=== PATIENT | female | born 1990 | race Caucasian/White ===

== ENCOUNTER → 2018-10-03 10:52 | Outpatient (CLI) | payer OTHER, SELFPAY ==
[2018-10-03 12:05] LABS: Add Manual Diff / Slide Review NO; Basophils Percent Auto 1.4 % (0-2); Eosinophils Percent Auto 1.8 % (2-4); Hematocrit 35.6 % (36-46); Hemoglobin 11.1 g/dL (12.0-16.0); Lymphocytes Percent Auto 26.7 % (25-40); Mean Corpuscular HGB Conc 31.2 % (30-36); Mean Corpuscular Hemoglobin 23.8 PG (26-34); Mean Corpuscular Volume 76.1 fL (80-100); Neutrophils Absolute Auto 6800 /uL (1500-7000); Neutrophils Percent Auto 64.1 % (50-75); Platelet Count 457 X10^3/uL (150-400); Red Blood Cell Count 4.68 X10^6/uL (4.0-5.2); Red Cell Distribution Width 19.5 % (11.6-14.8); White Blood Cell Count 10.6 X10^3/uL (4.5-11.0)
[2018-10-03 12:12] LABS: Hemoglobin A1C% w Est Avg Glu 5.5 % (4.0-6.0)
[2018-10-03 12:19] LABS: Alanine Aminotransferase 27 IU/L (9-52); Albumin 4.5 g/dL (3.5-5.0); Albumin Globulin Ratio 1.2 (1.0-2.8); Alkaline Phosphatase 84 U/L (38-126); Aspartate Aminotransferase 21 IU/L (14-36); BUN Creatinine Ratio 18.6 (6-22); Bilirubin Total 0.4 mg/dL (0.2-1.3); Blood Urea Nitrogen 13 mg/dL (7-17); Calcium 9.3 mg/dL (8.4-10.2); Carbon Dioxide 25 mmol/L (22-32); Chloride 105 mmol/L (98-107); Cholesterol 217 mg/dL (140-199); Estimated Glomerular Filt Rate > 60.0 mL/min (>60); Globulin 3.7 g/dL (1.7-4.1); Glucose 99 mg/dL (70-100); HDL Cholesterol 51 mg/dL (40-60); HEMOLYSIS < 15 (0-50); LDL Cholesterol Calculated 141 mg/dL (<100); Potassium 4.3 mmol/L (3.4-5.1); Sodium 143 mmol/L (137-145); Total Protein 8.2 g/dL (6.3-8.2); Triglycerides 123 mg/dL (35-150)
[2018-10-03 12:28] LABS: HEMOLYSIS < 15 (0-50); Iron 45 ug/dL (37-170)
[2018-10-03 12:40] LABS: Percent Iron Saturation 9 % (15-50); Total Iron Binding Capacity 478 ug/dL (265-497); Transferrin 401 mg/dL (206-381)
[2018-10-03 13:01] LABS: TSH w/ Reflex to FT4 2.32 uIU/mL (0.47-4.68)
[2018-10-05 14:09] LABS: Ferritin 6.6 ng/mL (6.27-137)
== END ==
PROVIDERS: Visit Provider Physician Assistant
DX: Z00.00 Encounter for general adult medical examination without abnormal findings (principal); D64.9 Anemia, unspecified
CPT/HCPCS: 36415; 80053; 80061; 82728; 83036; 83540; 83550; 84443; 85025

== ENCOUNTER 2018-10-12 17:14 | Emergency (ER) | payer OTHER, SELFPAY ==
[2018-10-12 17:26] VITALS: BP 132/87; PULSE 95; RESP 20; TEMP 37; O2SAT 98; BMI 43.4
--- NOTE | 2018-10-12 17:59 | ED.ANXIETY ---
HPI - Anxiety <Clau Segundo PA-C - Last Filed: 10/12/18 21:57> General Chief Complaint: Anxiety Stated Complaint: anxiety attack Time Seen by Provider: 10/12/18 17:59 Source: patient Mode of arrival: ambulatory Limitations: no limitations History of Present Illness HPI narrative: This 28-year-old female complains of severe panic attack. She has had ongoing anxiety for some time now and has actually been looking for a counselor due to this. She feels like it is related to significant stressors in her life including trying to help a friend with drug addiction. She states that she has had more minor panic attacks that she is usually able to calm down from on her own, however today she had terrible anxiety attack when she was going into work. She suddenly felt very anxious, lightheaded and claustrophobic. She had some palpitations earlier and her chest felt tight. She states that she has not been short of breath but has had a bit of an air hunger type sensation. She left work and had a friend pick her up and tried to relax at home and watch a movie with him, but symptoms are not resolving as usual. She states that the palpitations have resolved, but she still feels very jittery and her chest feels a little bit tight. She states that this feels like an anxiety attack but much worse than her previous ones. She has never taken any medication for this. She did have lab work done recently including a normal thyroid test. She has no ongoing health conditions. She believes that her father has anxiety/depression and alcoholism Related Data Previous Rx's Medication Instructions Recorded ferrous sulfate 325 mg (65 mg 325 mg PO DAILY #30 tab 10/05/18 iron) tablet lorazepam [Ativan] 1 mg PO BEDTIME PRN #5 tab 10/12/18 Allergies Allergy/AdvReac Type Severity Reaction Status Date / Time No Known Drug Allergies Allergy Verified 10/12/18 17:33 Review of Systems <Clau Segundo PA-C - Last Filed: 10/12/18 21:57> Review of Systems ROS Unobtainable: All systems reviewed & are unremarkable except as noted in HPI and below Exam <Clau Segundo PA-C - Last Filed: 10/12/18 21:57> Narrative Exam Narrative: GENERAL APPEARANCE: Patient tearful, in NAD HEENT: PERRL, EOMI, normal oropharynx NECK/THYROID: Neck supple, no masses LUNGS: Clear to auscultation bilaterally. HEART: Regular rate and rhythm without murmur, normal S1, S2, no S3 or S4. EXTREMITIES: No edema. No calf tenderness NEUROLOGIC: Alert and oriented, normal speech, and coordination. Initial Vital Signs Initial Vital Signs: Vital Signs Temperature 98.6 F 10/12/18 17:26 Pulse Rate 95 H 10/12/18 17:26 Respiratory Rate 20 10/12/18 17:26 Blood Pressure 132/87 10/12/18 17:26 Pulse Oximetry 98 10/12/18 17:26 <Aziza Ricardo DO - Last Filed: 10/13/18 00:52> Initial Vital Signs Initial Vital Signs: Vital Signs Temperature 98.6 F 10/12/18 17:26 Pulse Rate 95 H 10/12/18 17:26 Respiratory Rate 20 10/12/18 17:26 Blood Pressure 132/87 10/12/18 17:26 Pulse Oximetry 98 10/12/18 17:26 Course <Clau Segundo PA-C - Last Filed: 10/12/18 21:57> Additional Information: Patient is feeling markedly improved after Ativan. She wants to get something to eat and go home and rest. I have arranged local follow-up for her and discussed maintenance medication with her and she is agreeable. She will return if acutely worsening in the interim again Orders Ordered: ED Orders 10/12/18 18:11 EKG-12 Lead Stat Discontinued Medications Lorazepam (Ativan) 1 mg PO NOW ONE Stop: 10/12/18 18:12 Last Admin: 10/12/18 18:20 Dose: 1 mg Vital Signs - 8 hr 10/12/18 17:26 10/12/18 19:41 Temperature 98.6 F Pulse Rate 95 H 89 Respiratory Rate 20 16 Blood Pressure 132/87 124/63 Pulse Oximetry 98 96 <Aziza Ricardo DO - Last Filed: 10/13/18 00:52> Orders Ordered: ED Orders 10/12/18 18:11 EKG-12 Lead Stat Discontinued Medications Lorazepam (Ativan) 1 mg PO NOW ONE Stop: 10/12/18 18:12 Last Admin: 10/12/18 18:20 Dose: 1 mg Vital Signs - 8 hr 10/12/18 17:26 10/12/18 19:41 Temperature 98.6 F Pulse Rate 95 H 89 Respiratory Rate 20 16 Blood Pressure 132/87 124/63 Pulse Oximetry 98 96 MDM - Anxiety <Clau Segundo PA-C - Last Filed: 10/12/18 21:57> Lab Data Attestation: I reviewed the patient's lab results. Recent Labs reviewed from walk-in clinic including normal TSH ECG Data Attestation: I personally reviewed and interpreted this ECG as follows: (Normal sinus rhythm with rate 89, normal axis) Discharge Plan Departure Patient Disposition: Home Clinical Impression: Acute anxiety Discharge Date/Time: 10/12/18 19:42 Interventions: ED Discharge Assessment Last Done: 10/12/18 19:41 Instructions: DI for Anxiety -- Adult, DI for Panic Disorder Activity Restrictions/Additional Instructions: Please return as we talked about if you have any acutely worsening symptoms. Otherwise, I have given you a prescription for a few of the pills that you had tonight. You should start with 1/2 tab, and only take if you have a severe panic attack like tonight. Remember they can make you sleepy and not to drive. These help panic attacks, but do not help the underlying anxiety as we talked about. Since you have had a lot of stress in your life recently, please consider getting on maintenance medication to help you avoid having recurrent panic attacks. I have passed on your name to [facility]'s chief procurement officer (Rhonda) and let them know that you will call on Sunday to set up a follow up appointment from your visit here. They will be able to see you early next week. I reviewed the blood tests that you had recently and at this point I don't see further testing that you would need for your symptoms currently. Your EKG was normal today as well. Prescriptions: New lorazepam [Ativan] 1 mg tablet 1 mg PO BEDTIME PRN (Reason: panic attack) Qty: 5 RF: 0 No Action ferrous sulfate 325 mg (65 mg iron) tablet 325 mg PO DAILY Qty: 30 RF: 2 Referrals: [facility] [Provider Group] <Aziza Ricardo DO - Last Filed: 10/13/18 00:52> Cosign ED Attending Lissa Attestation: I was immediately available in the department for consultation. Documentation has been reviewed. I agree with assessment and plan.
[2018-10-12] MEDS: LORazepam 0.5 MG TABLET 1 MG PO (18:20)
[2018-10-12 19:41] VITALS: BP 124/63; PULSE 89; RESP 16; O2SAT 96
== END 2018-10-12 19:42 | disposition home or self-care (01) ==
PROVIDERS: Emergency Provider Internal Medicine
DX: F41.9 Anxiety disorder, unspecified (principal)
CPT/HCPCS: 93005; 99282; 99283

== ENCOUNTER → 2021-01-18 08:58 | Outpatient (CLI) | payer OTHER, SELFPAY | PROVIDERS: Visit Provider Physician Assistant | DX: J02.9 Acute pharyngitis, unspecified (principal) | CPT/HCPCS: 87070; 87077; 87147 ==